=== PATIENT | male | born 1965 | race Caucasian/White ===

== ENCOUNTER 2020-12-29 08:00 | Outpatient (CLI) | payer OTHER ==
--- NOTE | 2020-12-29 18:25 | XRAY Report ---
PROCEDURE: Lumbar Spine Complete INDICATIONS: LUMBAR BACK PAIN TECHNIQUE: 3 views of the lumbar spine were acquired. COMPARISON: None. FINDINGS: Bones: 5 [id number] vertebrae are present. There is grade 1 retrolisthesis of L2 on L3, L3 on L4, L4 and L5 and L5 on S1, greatest at L3 on L4 measuring 5 mm. There is anterior wedge deformity at L1 of indeterminate age, no priors are available for comparison. Moderate to severe foraminal narrow ing is present at L4-5, L5-S1. Severe disc space narrowing is present L3-4, mild to moderate througho ut the remainder of the lumbar spine. Soft tissues: Overlying bowel gas pattern is normal. No suspicious soft tissue calcifications. IMPRESSION: 1. Multilevel degenerative changes most notable at L4-5 and L5-S1. 2. Wedge deformity at L1 of indeterminate age, given no priors are available for comparison. Recommen d correlation recent history of trauma and area of pain. Reviewed by: Micki Ricks MD on 12/29/2020 6:24 PM PDT Approved by: Micki Ricks MD on 12/29/2020 6:24 PM PDT Station ID: [id number]
== END 2020-12-29 23:59 | disposition home or self-care (01) ==
LOC: DI.S 08:00
PROVIDERS: ATTEND Physician Assistant Medical
DX: M47.817 Spondylosis without myelopathy or radiculopathy, lumbosacral region (principal); M48.061 Spinal stenosis, lumbar region without neurogenic claudication